=== PATIENT | female | born 1935 | race Caucasian/White ===

== ENCOUNTER 2021-12-22 13:48 | Outpatient (CLI) | payer MEDICARE, OTHER | END 2021-12-22 13:49 | disposition home or self-care (01) | LOC: CSHMAMMO 13:48 | PROVIDERS: ATTEND Family Medicine | DX: Z12.31 Encounter for screening mammogram for malignant neoplasm of breast (principal) | CPT/HCPCS: 77063; 77067 ==

== ENCOUNTER 2024-04-30 09:04 | Outpatient (CLI) | payer MEDICARE, OTHER | END 2024-04-30 09:05 | disposition home or self-care (01) | LOC: CSHMAMMO 09:04 | PROVIDERS: ATTEND Family Medicine | DX: Z12.31 Encounter for screening mammogram for malignant neoplasm of breast (principal) | CPT/HCPCS: 77063; 77067 ==